=== PATIENT | female | born 1990 | race African-American/Black ===

== ENCOUNTER 2016-04-07 08:47 | Emergency (ER) | payer MEDICAID ==
[~2016-04-07] VITALS: Ht 160 cm; Wt 50.8 kg
[2016-04-07] MEDS: SODIUM CHLORIDE 0.9% 1,000 ML IVB ONE (09:23)
[2016-04-07] MEDS: ONDANSETRON HCL 4 MG/2 ML VIAL IV ONE (09:25)
[2016-04-07 09:55] LABS: Albumin 3.9 g/dL (3.4-5.0); Bilirubin, Total 0.5 mg/dL (0.2-1.0); Calcium 9.2 mg/dL (8.5-10.1); Potassium 3.6 mmol/L (3.5-5.1); Total Protein 8.3 g/dL (6.4-8.2)
[2016-04-07 09:58] LABS: Basophils # (auto) 0 uL; Basophils % (auto) 0.4 % (0.0-2.0); DEFINITIVE VIEW TRANSMISSION; Eosinophils # (auto) 0 uL; Eosinophils % (auto) 0.2 % (0.0-7.0); Hematocrit 28.8 % (36.0-46.0); Hemoglobin 8.3 g/dL (12.2-16.2); Lymphocytes # (auto) 1.7 uL; Lymphocytes % (auto) 17.5 % (10.0-50.0); Mean Corpuscular Hemoglobin 18.9 pg (28.0-32.0); Mean Corpuscular Hgb Conc. 28.8 g/dL (32.0-36.0); Mean Corpuscular Volume 65.5 fL (80.0-100.0); Mean Platelet Volume 7.3 fL (7.4-10.4); Monocytes # (auto) 0.5 uL; Monocytes % (auto) 5.1 % (0.0-12.0); Neutrophils # (auto) 7.3 uL; Neutrophils % (auto) 76.8 % (37.0-80.0); Platelet Count (auto) 346 10^3/uL (140-450); White Blood Cell 9.5 10^3/uL (4.4-10.8)
[2016-04-07 10:47] LABS: Urine Bilirubin Negative (Negative); Urine Color Yellow (Yellow); Urine Glucose Normal (Normal); Urine Ketone Negative (Negative); Urine Nitrite Negative (Negative); Urine RBC 3 /hpf (0 - 4); Urine Squamous Epithelial Cell FEW /hpf (<5); Urine Urobilinogen Normal (Negative); Urine pH 6.5 (5.0-8.0)
[2016-04-07 10:50] LABS: Urine Blood 1+ /uL (Negative)
[2016-04-07 12:12] LABS: Burr Cells FEW; Hypochromia Marked; Microcytosis Marked; Ovalocytes FEW; Platelet Estimate Adequate
[2016-04-07 15:02] VITALS: BP 110/64
== END 2016-04-07 15:48 | disposition home or self-care (01) ==
LOC: ER 08:50
DX: R10.9 Unspecified abdominal pain (principal); D64.9 Anemia, unspecified
CPT/HCPCS: 36415; 76856; 80053; 81001; 81025; 85025; 93005; 94761; 96361; 96374; 99285; J2405; J7030